=== PATIENT | male | born 2000 | race Hispanic/Latino ===

== ENCOUNTER 2023-12-31 15:10 | Emergency (ER) | payer OTHER ==
[~2023-12-31] VITALS: Ht 177.8 cm; Wt 120.4 kg
[2023-12-31] MEDS: SODIUM CHLORIDE 0.9% 1000ML 1,000 ML IV SCH (16:55)
[2023-12-31] MEDS ORDERED: METFORMIN HCL500 MG PO (17:10)
[2023-12-31 17:40] VITALS: BP 123/82; PULSE 89; RESP 18; TEMP 98.1; O2SAT 99
== END 2023-12-31 17:44 | disposition home or self-care (01) ==
LOC: FSED 15:42
DX: E11.65 Type 2 diabetes mellitus with hyperglycemia (principal); R74.8 Abnormal levels of other serum enzymes; E66.9 Obesity, unspecified; Z68.30 Body mass index [BMI] 30.0-30.9, adult
CPT/HCPCS: 36415; 80053; 81003; 82948; 85025; 99282; J7030